=== PATIENT | male | born 1965 | race Caucasian/White ===

== ENCOUNTER 2020-06-20 09:48 | Inpatient (IN) | payer OTHER ==
[~2020-06-20] VITALS: Ht 182.9 cm; Wt 125.2 kg
[2020-06-20 10:43] LABS: BASOPHILS ABSOLUTE AUTO 0.12 K/mm3 (0.00-0.23); BASOPHILS PERCENT AUTO 0 % (0-2); EOSINOPHILS ABSOLUTE AUTO 0.12 K/mm3 (0.00-0.68); EOSINOPHILS PERCENT AUTO 0 % (0-6); Hematocrit 30.2 % (37.0-53.0); Hemoglobin 9.9 g/dL (13.5-17.5); IMMATURE GRAN ABSOLUTE AUTO 0.42 K/mm3 (0.00-0.10); IMMATURE GRAN PERCENT AUTO 2 % (0-1); LYMPHOCYTES ABSOLUTE AUTO 1.42 K/mm3 (0.84-5.20); LYMPHOCYTES PERCENT AUTO 5 % (21-46); MONOCYTES ABSOLUTE AUTO 1.72 K/mm3 (0.16-1.47); MONOCYTES PERCENT AUTO 6 % (4-13); Mean Corpuscular HGB 28.5 pg (26.0-34.0); Mean Corpuscular HGB Conc 32.8 g/dL (31.5-36.5); Mean Corpuscular Volume 87 fL (80-100); Mean Platelet Volume 10.2 fL (9.1-12.4); NEUTROPHILS ABSOLUTE AUTO 23.28 K/mm3 (1.96-9.15); NEUTROPHILS PERCENT AUTO 86 % (41-73); Platelet Count 336 K/mm3 (150-400); RDW Coefficient Variation 13.6 % (11.7-14.2); RDW Standard Deviation 43.3 fL (35.1-46.3); Red Blood Cell Count 3.47 M/mm3 (4.30-5.90); White Blood Cell Count 27.08 K/mm3 (4.00-11.30)
[2020-06-20 10:51] LABS: Albumin, Blood 1.5 g/dL (3.4-5.0); Albumin/Globulin Ratio 0.3 (0.8-1.8); Bilirubin, Total 4.7 mg/dL (0.1-1.0); Bun/Creatinine Ratio 12.3 (12.0-20.0); Calcium, Blood 8.3 mg/dL (8.5-10.1); Creatinine, Blood 3.73 mg/dL (0.60-1.20); Globulin, Blood 5.3 g/dL (2.2-4.0); Potassium, Blood 4.1 mmol/L (3.5-5.5); Total Protein, Blood 6.8 g/dL (6.4-8.2)
[2020-06-20 13:13] LABS: Source, Urine Clean Catch
[2020-06-20 13:15] LABS: Appearance, Urine Hazy (Clear); Bilirubin, Urine Neg (Neg); Blood, Urine 3+ (Neg); Color, Urine Yellow (P-Yellow); Glucose Qualitative, Urine Neg (Neg); Ketones, Urine Neg (Neg); Leukocyte Esterase, Urine Neg (Neg); Nitrite, Urine Neg (Neg); Protein, Urine 2+ (Neg); Urobilinogen, Urine NORM (Normal)
[2020-06-20 13:27] LABS: Amorphous Mod (0-Heavy)
[2020-06-20 13:29] LABS: Bacteria Few /hpf; Squamous Epithelial Cells Few /hpf (Few); White Blood Cells, Urine 0-2 /hpf (0-5)
[2020-06-20 13:30] LABS: Transitional Epithelial Cells Few /hpf (0-Rare)
[2020-06-20 17:37] LABS: Influenza A, PCR Negative (NEGATIVE); Influenza B, PCR Negative (NEGATIVE); Resp Syncytial Virus, PCR Negative (NEGATIVE); SARS-Cov-2 (COVID-19) PCR, MMC Negative (NEGATIVE)
--- NOTE | 2020-06-20 18:50 | NUR ---
SHIFT SUMMARY- PT ADMITTED THROUGH THE ED, R/O COVID TEST COMPLETED NEGATIVE RESULT. PER PT HE HAS NO HEALTH Hx OTHER THAN DIABETES AND THAT WAS A FAIRLY RECENT DEVELOPEMENT. PT TAKES NO MEDICATIONS AT HOME AND IS NORMALLY INDEPENDENT. 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 HE REQUESTS NO PORK. PT DENIED NAUSEA ON ARRIVAL THEN A SHORT WHILE LATER BEGAN BURPING AND WRETCHING, THE WAVE PASSED AND HE WAS AGAIN NOT NAUSEOUS. PT SPOUSE CATHRYN WOULD LIKE ISREAL TO CALL HER WITH ANY UPDATES, SHE IS A RN. PT CURRENTLY DENIES PAIN. NO S&S OF DISTRESS NOTED AT THIS TIME WILL CTM AND PASS ON TO NIGHT RN IN BEDSIDE REPORT. PT SPOUSE ASKED THE RN TO CALL HER WITH UPDATE WILL CALL ONCE REPORT IS COMPLETED WITH NIGHTSHIFT.
--- NOTE | 2020-06-20 19:36 | NUR ---
CALLED PT SPOUSE WITH AN UPDATE THIS EVENING.
--- NOTE | 2020-06-20 23:06 | NUR ---
TWENTY-FOUR HOUR URINE COLLECTION IN PROGRESS. PATIENT VOIDING AT THIS TIME.
--- NOTE | 2020-06-21 04:01 | NUR ---
SHIFT SUMMARY PATIENT NAUSEOUS X ONE AT SHIFT CHANGE AND IV ZOFRAN EFFECTIVE IN REDUCING N/V. AXO X 4 AND ONE ASSIST W/FWW TO BR. USES URINAL AT BEDSIDE. TWENTY-FOUR HOUR URINE COLLECTION STARTED. PIV REMAINS INTACT. PLASTERER ROUGH REPORTS ST 101. CELLULITIS WOUNDS OPEN TO AIR. PHOTO CONSENT SIGNED AND PICTURES TAKEN AND IN CHART. ARANESP SC GIVEN PER EMAR. PATIENT REPORTED NAUSEA A SECOND TIME AND ASKED FOR CRACKERS AND CHEESE FOR RELIEF. N/V RESOLVED. PATIENT ABLE TO GO BACK TO SLEEP. LOW GRADE TEMP. CALL LIGHT IN REACH. BED IN LOWEST POSITION. WILL CONTINUE TO MONITOR UNTIL DAY SHIFT NURSE ASSUMES CARE.
[2020-06-21 05:09] LABS: BASOPHILS ABSOLUTE AUTO 0.09 K/mm3 (0.00-0.23); BASOPHILS PERCENT AUTO 0 % (0-2); EOSINOPHILS PERCENT AUTO 1 % (0-6); Hematocrit 28.8 % (37.0-53.0); Hemoglobin 9.5 g/dL (13.5-17.5); IMMATURE GRAN ABSOLUTE AUTO 0.38 K/mm3 (0.00-0.10); IMMATURE GRAN PERCENT AUTO 2 % (0-1); LYMPHOCYTES ABSOLUTE AUTO 1.61 K/mm3 (0.84-5.20); LYMPHOCYTES PERCENT AUTO 7 % (21-46); MONOCYTES ABSOLUTE AUTO 1.79 K/mm3 (0.16-1.47); MONOCYTES PERCENT AUTO 8 % (4-13); Mean Corpuscular HGB 28.2 pg (26.0-34.0); Mean Corpuscular Volume 86 fL (80-100); Mean Platelet Volume 10.1 fL (9.1-12.4); NEUTROPHILS ABSOLUTE AUTO 18.64 K/mm3 (1.96-9.15); NEUTROPHILS PERCENT AUTO 82 % (41-73); Platelet Count 315 K/mm3 (150-400); RDW Coefficient Variation 13.6 % (11.7-14.2); RDW Standard Deviation 42.9 fL (35.1-46.3); Red Blood Cell Count 3.37 M/mm3 (4.30-5.90); White Blood Cell Count 22.71 K/mm3 (4.00-11.30)
[2020-06-21 05:35] LABS: Alanine Aminotransfer (ALT/SGP 54 U/L (12-78); Albumin, Blood 1.5 g/dL (3.4-5.0); Albumin/Globulin Ratio 0.3 (0.8-1.8); Alk Phos 448 U/L (50-136); Anion Gap 11 mmol/L (6-16); Aspartate Aminotrans (AST/SGOT 60 U/L (12-37); Bilirubin, Total 4.4 mg/dL (0.1-1.0); Blood Urea Nitrogen 59 mg/dL (8-24); Bun/Creatinine Ratio 13.4 (12.0-20.0); CO2, Blood 22 mmol/L (21-32); Chloride, Blood 97 mmol/L (98-108); Globulin, Blood 4.8 g/dL (2.2-4.0); Glomerular Filtration Rate 15 (60-); Glucose, Blood 148 mg/dL (70-99); Magnesium, Blood 2.2 mg/dL (1.6-2.4); Phosphorus, Blood 4.9 mg/dL (2.5-4.9); Potassium, Blood 3.9 mmol/L (3.5-5.5); Prostate Specific Antigen 0.553 ng/mL (0.000-4.000); Sodium, Blood 130 mmol/L (136-145); Total Protein, Blood 6.3 g/dL (6.4-8.2)
--- NOTE | 2020-06-21 08:01 | NUR ---
ON MORNING ASSESSMENT PT WAS NOTED TO HAVE A LITTLE COUGH. WHEN ASKED HE STATED HE HAS HAD THIS "NAGGING COUGH" SINCE . HE DENIES SORE THROAT NOTED SOME WHITE PATCHES NEAR THE BACK OF THE THROAT AND ON THE UVULA. REDNESS NOTED THROUGHOUT THE VISIBLE THROAT. WILL SPEAK TO ON MORNING ROUNDS.
[2020-06-21 08:09] LABS: HBSAG SCREEN Negative (Negative); HEP A AB, IGM Negative (Negative); HEP B CORE AB, IGM Negative (Negative); HEP B CORE AB, TOT Negative (Negative); HEP C VIRUS AB 0.1 (0.0-0.9); HEP C VIRUS AB <0.1 (0.0-0.9)
--- NOTE | 2020-06-21 10:49 | NUR ---
Clinical Visit: Pt is alert, oriented, pleasant. He reports moderate to severe pain in the leg that is infected with cellulitis. Pt believes that he has already filled out an advance directive in the ER, however, this sounds more like he has signed consent for treatment and admission forms. Discussed advanced care planning. He is open to filling one out if he hasn't already. He has discussed wishes with his ; he states she is aware of his feelings on life support. He is accepting of looking at the advance directive when he gets home. Reviewed purpose of directive; instructed on two witness signatures that can be obtained from friends as long as they are not named decision makers in the document. He thanks this nurse for the time to have this discussion. No other concerns. He will accept Tylenol or Advil for the pain he is having in his legs.
--- NOTE | 2020-06-21 18:23 | NUR ---
SHIFT SUMMARY- SPOKE TO DR ABOUT THE NOTED WHITE PATCHES IN THE PT THROAT, HE IS AWARE. NO ACUTE CHANGES T/O THE DAY. BP HAS BEEN ELEVATED, PAIN SEEMS WELL MANAGED WITH TYLENOL. PT IS A 1P SBA TO THE BATHROOM. PT USES THE URINAL INDEPENDENTLY, 24 HOUR URINE COLLECTION WILL BE COMPLETED AT 1999. PT HAS SOME TRACE EDEMA IN THE RLE THE LLE HAS 2+ PITTING EDEMA. REDNESS SEEMS TO BE REDUCED. GFR WENT DOWN TODAY. DR MORELOS IS CONSULTED. PT SPOUSE REQUESTS THAT HE CALLS HER WITH UPDATE TOMORROW ABOUT THE PT KIDNEY FUNCTION. WILL PASS ALL ON IN REPORT TO NIGHT RN IN BEDSIDE REPORT.
[2020-06-21 20:17] LABS: Source, Urine Catheter
[2020-06-21 20:21] LABS: Bilirubin, Urine Neg (Neg); Blood, Urine 3+ (Neg); Glucose Qualitative, Urine 1+ (Neg); Ketones, Urine 1+ (Neg); Leukocyte Esterase, Urine Neg (Neg); Nitrite, Urine Neg (Neg); Protein, Urine 2+ (Neg); Urobilinogen, Urine NORM (Normal)
[2020-06-21 20:26] LABS: Appearance, Urine Hazy (Clear); Color, Urine Yellow (P-Yellow)
[2020-06-21 20:28] LABS: Squamous Epithelial Cells Not Seen /hpf (Few); White Blood Cells, Urine 0-2 /hpf (0-5)
[2020-06-21 20:29] LABS: Bacteria Rare /hpf
[2020-06-21 20:53] LABS: Protein, Urine Quantitative 30.3 mg/dL (0.0-11.9)
--- NOTE | 2020-06-22 04:53 | NUR ---
SHIFT SUMMARY PATIENT HAD NO ACUTE CHANGES OBSERVED. AXOX 4 AND ONE ASSIST TO BATHROOM. USES URINAL AT BEDSIDE. ON IV BUMEX. TWENTY-FOUR HOUR URINE COLLECTION SENT TO LAB WITH ADDITIONAL URINE SEPARATE LABS. CELLULITIS LEFT CALF. DENIES PAIN, SOB, AND N/V. PIV REMAINS INTACT. AFEBRILE. CALL LIGHT IN REACH. BED IN LOWEST POSITION. WILL CONTINUE TO MONITOR UNTIL DAY SHIFT NURSE ASSUMES CARE.
[2020-06-22 05:58] LABS: BASOPHILS ABSOLUTE AUTO 0.16 K/mm3 (0.00-0.23); BASOPHILS PERCENT AUTO 1 % (0-2); EOSINOPHILS ABSOLUTE AUTO 0.22 K/mm3 (0.00-0.68); EOSINOPHILS PERCENT AUTO 1 % (0-6); Hematocrit 30.5 % (37.0-53.0); Hemoglobin 9.9 g/dL (13.5-17.5); IMMATURE GRAN ABSOLUTE AUTO 0.75 K/mm3 (0.00-0.10); IMMATURE GRAN PERCENT AUTO 4 % (0-1); LYMPHOCYTES ABSOLUTE AUTO 1.84 K/mm3 (0.84-5.20); LYMPHOCYTES PERCENT AUTO 9 % (21-46); MONOCYTES ABSOLUTE AUTO 1.62 K/mm3 (0.16-1.47); MONOCYTES PERCENT AUTO 8 % (4-13); Mean Corpuscular HGB 27.7 pg (26.0-34.0); Mean Corpuscular HGB Conc 32.5 g/dL (31.5-36.5); Mean Corpuscular Volume 85 fL (80-100); Mean Platelet Volume 9.8 fL (9.1-12.4); NEUTROPHILS ABSOLUTE AUTO 16.24 K/mm3 (1.96-9.15); NEUTROPHILS PERCENT AUTO 78 % (41-73); Platelet Count 379 K/mm3 (150-400); RDW Coefficient Variation 13.8 % (11.7-14.2); RDW Standard Deviation 43.2 fL (35.1-46.3); Red Blood Cell Count 3.57 M/mm3 (4.30-5.90); White Blood Cell Count 20.83 K/mm3 (4.00-11.30)
[2020-06-22 06:24] LABS: Albumin, Blood 1.6 g/dL (3.4-5.0); Albumin/Globulin Ratio 0.3 (0.8-1.8); Bilirubin, Direct 2.5 mg/dL (0.0-0.3); Bilirubin, Indirect 0.8 mg/dL (0.1-0.7); Bilirubin, Total 3.3 mg/dL (0.1-1.0); Bun/Creatinine Ratio 14.2 (12.0-20.0); Calcium, Blood 8.1 mg/dL (8.5-10.1); Creatinine, Blood 5.2 mg/dL (0.60-1.20); Globulin, Blood 5.3 g/dL (2.2-4.0); Magnesium, Blood 2.3 mg/dL (1.6-2.4); Phosphorus, Blood 5.7 mg/dL (2.5-4.9); Potassium, Blood 4.2 mmol/L (3.5-5.5); Total Protein, Blood 6.9 g/dL (6.4-8.2); Uric Acid, Blood 9.6 mg/dL (3.5-7.2)
--- NOTE | 2020-06-22 10:38 | NUR ---
SPOKE TO - PT STATED HE IS HAVING FULL BODY DISCOMFORT WORSENED BY TOUCH. PT DENIES N/T BUT HIS DESCRIPTION SOUNDS LIKE A LITTLE NUMBNESS. DR IS AWARE, MENTIONED POSSIBLE GABAPENTIN TO HELP WITH THIS DISCOMFORT, NO NEW ORDERS YET HAS NOT SEEN THE PT YET. PT HAS NO C/O SORE THROAT STATES AN "OCCASSIONAL TICKLE" RENDESS NOTED ON MORNING ASSESSMENT WELL WHITE PATCHES ON BOTH SIDES OF THE BACK OF THE THROAT. SPOKE TO ABOUT A OBTAINING A SWAB. NO NEW ORDERS AT THIS TIME.
--- NOTE | 2020-06-22 14:54 | NUR ---
PT HAS IV BUMEX ORDERED TID. BP CHECK PRIOR TO 1400 DOSE SHOWS BP 170/100 CHECKED TWICE. GAVE 2MG IV BUMEX WILL RECHECK BP IN ONE HOUR. WILL CALL DR IF PERSISTENT HTN IS PRESENT.
--- NOTE | 2020-06-22 15:35 | NUR ---
CALLED DR MORELOS- WHEN REVIEWING DR CLARKE NOTE FROM EARLIER TODAY THE PLAN SEEMED TO BE FOR AN ECHO TO BE DONE BUT NO ORDER IN THE PT CHART AT THIS TIME, CALLED TO CLARIFY AND SEE IF THIS ORDER SHOULD BE PLACED; LEFT A VOICEMAIL AWAITING A CALL BACK.
--- NOTE | 2020-06-22 15:40 | NUR ---
SPOKE TO DR MORELOS- NEW ORDER PLACED FOR ECHO TO R/O PERICARDIAL EFFUSION. OK TO DO TOMORROW PER DR MORELOS.
--- NOTE | 2020-06-22 15:49 | NUR ---
CALLED DR GARZA- PT REPEAT BP 1 HOUR AFTER THE IV BUMEX WAS 171/102. DR AWARE NO NEW ORDERS AT THIS TIME.
--- NOTE | 2020-06-22 17:06 | NUR ---
SHIFT SUMMARY- PT ALERT AND ORIENTED, 1P ASSIST TO THE BATHROM. SPOUSE BROUGHT IN HIS PERSONAL UNDERGARMENTS SO NO LONGER IN ATTENDS. PT STATED HE HAS FULL BODY PAIN BUT IT IS "DULL AND NAGGING" TYPE OF PAIN [place]ING ALL OF HIS BODY "EVEN HIS FACE." PT SPOUSE BROUGHT IN A BAGEL AND HE HAD A 1/4 OF IT A SNACK, WITH CREAM CHEESE, BETWEEN LUNCH AND DINNER. EVENING BG HIGHER THAN LUNCH TIME BG AND PT RECIEVED 9 UNITS OF COVERAGE WITH LUNCH. PT HAS HAD PERSISTENT HTN SINCE ADMIT METOPROLOL STARTED YESTERDAY DOSE INCREASED TODAY. PT STILL HAVING HTN, SEE PREVIOUS NOTES FOR DETAILS. DR FISH.
[2020-06-23 05:34] LABS: Hematocrit 28.9 % (37.0-53.0); Hemoglobin 9.6 g/dL (13.5-17.5)
[2020-06-23 06:02] LABS: Albumin, Blood 1.5 g/dL (3.4-5.0); Anion Gap 11 mmol/L (6-16); Blood Urea Nitrogen 85 mg/dL (8-24); Bun/Creatinine Ratio 14.4 (12.0-20.0); CO2, Blood 23 mmol/L (21-32); Calcium, Blood 7.8 mg/dL (8.5-10.1); Chloride, Blood 96 mmol/L (98-108); Creatinine, Blood 5.92 mg/dL (0.60-1.20); Glomerular Filtration Rate 11 (60-); Glucose, Blood 367 mg/dL (70-99); Potassium, Blood 4.1 mmol/L (3.5-5.5); Sodium, Blood 130 mmol/L (136-145)
--- NOTE | 2020-06-23 06:49 | NUR ---
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 DID NOT SLEEP WELL OVERNIGHT. DR. MORELOS INCREASED DOSE OF RESTORIL FOR TONIGHT. PT HAS BEEN HYPERTENSIVE. HOSPITALIST DR. WILDER NOTIFIED. HYDRALAZINE Q6 PRN IV ORDERED WELL TELE. PT BEEN SR IN THE 80'S. PLEASANT AND COOPERATIVE. CALLS APPROPRIATELY. CALL LIGHT WITHIN REACH.
[2020-06-23 08:21] LABS: BASOPHILS PERCENT AUTO 1 % (0-2); EOSINOPHILS ABSOLUTE AUTO 0.24 K/mm3 (0.00-0.68); EOSINOPHILS PERCENT AUTO 1 % (0-6); Hematocrit 29.1 % (37.0-53.0); Hemoglobin 9.6 g/dL (13.5-17.5); IMMATURE GRAN PERCENT AUTO 4 % (0-1); LYMPHOCYTES ABSOLUTE AUTO 1.75 K/mm3 (0.84-5.20); LYMPHOCYTES PERCENT AUTO 10 % (21-46); MONOCYTES PERCENT AUTO 9 % (4-13); Mean Corpuscular HGB 28.3 pg (26.0-34.0); Mean Corpuscular Volume 86 fL (80-100); Mean Platelet Volume 10.4 fL (9.1-12.4); NEUTROPHILS ABSOLUTE AUTO 13.47 K/mm3 (1.96-9.15); NEUTROPHILS PERCENT AUTO 75 % (41-73); Platelet Count 365 K/mm3 (150-400); RDW Coefficient Variation 14.2 % (11.7-14.2); RDW Standard Deviation 44.4 fL (35.1-46.3); Red Blood Cell Count 3.39 M/mm3 (4.30-5.90); White Blood Cell Count 18.06 K/mm3 (4.00-11.30)
--- NOTE | 2020-06-23 10:52 | NUR ---
Echocardiogram completed.
--- NOTE | 2020-06-23 17:07 | NUR ---
PATIENT IS A/OX4, UP WITH FWW AND 1 ASSIST. LLE RED AND WEEPING, ANCEF STARTED TO CELLULITIS. SR ON TLE, B/P ELEVATED THIS EVENING AND HYDRALAZINE GIVEN X1 TO TREAT. SR ON TELE, PATIENT DENIES ANY CP OR SOB. LUNGS CLEAR, ON RA. BLOOD SUGARS ELEVATED, PATIENT NOW ON MEDIUM SLIDING SCALE. 20G IV TO R AC WNL AND SL. 1L FLUID RESTRICTION, ADA DIET. FENTANYL GIVEN X1 FOR LLE PAIN AFTER WORKING WITH THERAPY. ECHO COMPLETED TODAY. CALM AND COOPERATIVE WITH CARE, CALLS APPROPRIATELY FOR ASSISTANCE.
--- NOTE | 2020-06-23 17:24 | NUR ---
Spiritual care note: Wiliam was tearful as he spoke to me about his childhood, the loss of his first , and his fear of . 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 He has three grown sons and has remarried. I facilitated conversation about his grief and explored his beleifs. We prayed together for healing and strength. He will benefit from a clear explaination about his illnesses and how to better care for himself from a medical standpoint. I will remain available.
[2020-06-24 05:19] LABS: BASOPHILS ABSOLUTE AUTO 0.14 K/mm3 (0.00-0.23); BASOPHILS PERCENT AUTO 1 % (0-2); EOSINOPHILS ABSOLUTE AUTO 0.25 K/mm3 (0.00-0.68); EOSINOPHILS PERCENT AUTO 1 % (0-6); Hematocrit 28.5 % (37.0-53.0); Hemoglobin 9.6 g/dL (13.5-17.5); IMMATURE GRAN ABSOLUTE AUTO 0.83 K/mm3 (0.00-0.10); IMMATURE GRAN PERCENT AUTO 4 % (0-1); LYMPHOCYTES ABSOLUTE AUTO 2.05 K/mm3 (0.84-5.20); LYMPHOCYTES PERCENT AUTO 11 % (21-46); MONOCYTES ABSOLUTE AUTO 1.93 K/mm3 (0.16-1.47); MONOCYTES PERCENT AUTO 10 % (4-13); Mean Corpuscular HGB 28.3 pg (26.0-34.0); Mean Corpuscular HGB Conc 33.7 g/dL (31.5-36.5); Mean Corpuscular Volume 84 fL (80-100); Mean Platelet Volume 9.8 fL (9.1-12.4); NEUTROPHILS ABSOLUTE AUTO 14.33 K/mm3 (1.96-9.15); NEUTROPHILS PERCENT AUTO 73 % (41-73); Platelet Count 381 K/mm3 (150-400); RDW Standard Deviation 43.1 fL (35.1-46.3); Red Blood Cell Count 3.39 M/mm3 (4.30-5.90); White Blood Cell Count 19.53 K/mm3 (4.00-11.30)
[2020-06-24 05:43] LABS: Magnesium, Blood 2.3 mg/dL (1.6-2.4)
[2020-06-24 05:44] LABS: Albumin, Blood 1.7 g/dL (3.4-5.0); Anion Gap 11 mmol/L (6-16); Blood Urea Nitrogen 85 mg/dL (8-24); Bun/Creatinine Ratio 13.7 (12.0-20.0); CO2, Blood 23 mmol/L (21-32); Chloride, Blood 97 mmol/L (98-108); Creatinine, Blood 6.21 mg/dL (0.60-1.20); Glomerular Filtration Rate 10 (60-); Glucose, Blood 283 mg/dL (70-99); Phosphorus, Blood 6.5 mg/dL (2.5-4.9); Potassium, Blood 3.9 mmol/L (3.5-5.5); Sodium, Blood 131 mmol/L (136-145)
--- NOTE | 2020-06-24 05:50 | NUR ---
SHIFT SUMMARY AOX4. TELE NSR @92. BP SLIGHTLY ELEVATED THIS AM @167/95, GAVE HYDRALAZINE PER ORDERS FOR >160 SYSTOLIC. REST OF VITALS STABLE. PT DENIES N/V, DYSPNEA. REPORTS 3.5-710 LLE, PAIN WORSE c AMBULATION. PT STATES CELLULITIS IN LLE HAS GOTTEN BETTER, LLE IS OPEN TO AIR, SMALL AMOUNT RED DRAINAGE NOTED, +2 EDEMA, REDNESS HAS RECEDED FROM OUTLINE ON LEG. RECIEVING IV ANCEF & BUMEX. HS CBG @284. HAD FIRM HARD BM THIS MORNING. CALL LIGHT IN REACH, WILL MONITOR UNTIL DAY NURSE ASSUMES CARE.
[2020-06-24 13:09] LABS: A/G RATIO 0.6 (0.7-1.7); ALBUMIN 1.9 g/dL (2.9-4.4); ALPHA-1-GLOBULIN 0.4 g/dL (0.0-0.4); BETA GLOBULIN 1.1 g/dL (0.7-1.3); GAMMA GLOBULIN 1.3 g/dL (0.4-1.8); GLOBULIN, TOTAL 3.8 g/dL (2.2-3.9); IMMUNOGLOBULIN A, QN, SERUM 312 mg/dL (90-386); IMMUNOGLOBULIN G, QN, SERUM 1408 mg/dL (603-1613); IMMUNOGLOBULIN M, QN, SERUM 66 mg/dL (20-172); M-SPIKE Not Observed g/dL (Not Observed); PROTEIN, TOTAL, SERUM 5.7 g/dL (6.0-8.5)
--- NOTE | 2020-06-24 17:42 | NUR ---
PATIENT A/OX4, UP WITH FWW 1 ASSIST. PAINFUL WITH AMBULATION. MEDIATED WITH FENTANYL X1. PT/OT ORDERED. 20G IV TO R AC WNL AND SL. REDNESS IMPROVING TO LLE, ANCEF ORDERED TO TREAT CELLULITIS. PATIENT TO HAVE PERM CATH PLACED IN AM AT 0700, DR. LONG UNABLE TO TODAY. TOLERATING ADA DIET, COMPLIANT WITH 1.5L FLUID RESTRICTION. ABLE TO MAKE NEEDS KNOWN.
[2020-06-25 05:33] LABS: BASOPHILS ABSOLUTE AUTO 0.12 K/mm3 (0.00-0.23); BASOPHILS PERCENT AUTO 1 % (0-2); EOSINOPHILS ABSOLUTE AUTO 0.28 K/mm3 (0.00-0.68); EOSINOPHILS PERCENT AUTO 1 % (0-6); Hematocrit 27.3 % (37.0-53.0); Hemoglobin 9.1 g/dL (13.5-17.5); IMMATURE GRAN ABSOLUTE AUTO 0.63 K/mm3 (0.00-0.10); IMMATURE GRAN PERCENT AUTO 3 % (0-1); LYMPHOCYTES ABSOLUTE AUTO 1.92 K/mm3 (0.84-5.20); LYMPHOCYTES PERCENT AUTO 10 % (21-46); MONOCYTES ABSOLUTE AUTO 1.74 K/mm3 (0.16-1.47); MONOCYTES PERCENT AUTO 9 % (4-13); Mean Corpuscular HGB 27.9 pg (26.0-34.0); Mean Corpuscular HGB Conc 33.3 g/dL (31.5-36.5); Mean Corpuscular Volume 84 fL (80-100); Mean Platelet Volume 9.5 fL (9.1-12.4); NEUTROPHILS ABSOLUTE AUTO 14.88 K/mm3 (1.96-9.15); NEUTROPHILS PERCENT AUTO 76 % (41-73); Platelet Count 375 K/mm3 (150-400); RDW Coefficient Variation 14.1 % (11.7-14.2); RDW Standard Deviation 43.1 fL (35.1-46.3); Red Blood Cell Count 3.26 M/mm3 (4.30-5.90); White Blood Cell Count 19.57 K/mm3 (4.00-11.30)
[2020-06-25 05:56] LABS: Albumin, Blood 1.6 g/dL (3.4-5.0); Anion Gap 10 mmol/L (6-16); Blood Urea Nitrogen 91 mg/dL (8-24); CO2, Blood 24 mmol/L (21-32); Calcium, Blood 8.1 mg/dL (8.5-10.1); Chloride, Blood 98 mmol/L (98-108); Creatinine, Blood 6.51 mg/dL (0.60-1.20); Glomerular Filtration Rate 10 (60-); Glucose, Blood 266 mg/dL (70-99); Magnesium, Blood 2.3 mg/dL (1.6-2.4); Phosphorus, Blood 6.9 mg/dL (2.5-4.9); Potassium, Blood 3.9 mmol/L (3.5-5.5); Sodium, Blood 132 mmol/L (136-145)
[2020-06-25 07:10] LABS: ANTIGLOMERULAR BM AB 5 units (0-20)
--- NOTE | 2020-06-25 07:51 | NUR ---
SHIFT SUMMARY NO ACUTE CHANGES THIS SHIFT. AOX4. VSS. TELE NSR HR 80'S. DENIES N/V DYSPNEA. HAS 2-3/10 PAIN IN LLE R/T CELLULITIS. REDNESS HAS DECREASED IN LLE, STILL HAS +2 EDEMA. DENIES NEED FOR PAIN MEDICATION. HAS BEEN NPO SINCE MIDNIGHT FOR PERMCATH PLACEMENT THIS AM. PT WAS TAKEN TO SURGERY AROUND 0740 WHILE GIVING REPORT TO DAY SHIFT NURSE.
[2020-06-25 13:10] LABS: ANA DIRECT Positive (Negative); ANTI-CENTROMERE B ANTIBODIES <0.2 AI (0.0-0.9); ANTI-DNA (DS) AB QN <1 IU/mL (0-9); ANTI-JO-1 <0.2 AI (0.0-0.9); ANTICHROMATIN ANTIBODIES <0.2 AI (0.0-0.9); ANTIMYELOPEROXIDASE (MPO) ABS <9.0 U/mL (0.0-9.0); ANTIPROTEINASE 3 (PR-3) ABS <3.5 U/mL (0.0-3.5); ANTIRIBOSOMAL P ANTIBODIES <0.2 AI (0.0-0.9); ANTISCLERODERMA-70 ANTIBODIES <0.2 AI (0.0-0.9); ATYPICAL PANCA <1:20 titer (Neg:<1:20); CYTOPLASMIC (C-ANCA) <1:20 titer (Neg:<1:20); PERINUCLEAR (P-ANCA) <1:20 titer (Neg:<1:20); RNP ANTIBODIES 1.7 AI (0.0-0.9); SJOGREN'S ANTI-SS-A <0.2 AI (0.0-0.9); SJOGREN'S ANTI-SS-B <0.2 AI (0.0-0.9); SMITH ANTIBODIES <0.2 AI (0.0-0.9); SMITH/RNP ANTIBODIES <0.2 AI (0.0-0.9)
[2020-06-25 13:10] LABS: M-SPIKE, % Not Observed % (Not Observed); PROTEIN,TOTAL,URINE 17.4 mg/dL (Not Estab.)
--- NOTE | 2020-06-25 16:32 | NUR ---
LATE ENTRY FOR 06/25 0730- PT SENT TO CARDIAC LAB FOR PERMACATH PLACEMENT. PT HAS BEEN NPO SINCE ME. RETURNNED POST PROCEDURE 904, SCANT SS DRAINAGE PROX INC SITE, APPLIED BANDANGELIQUE RUST. CATH SITE PATENT NO DRAINAGE, GAUZE INTACT. CALL LIGHT IN REACH, WILL CHECK POST PROCEDURE VS.
--- NOTE | 2020-06-25 17:23 | NUR ---
Spiritual care note: Prayer provided for Wiliam who was on his way to his 1st dialysis. He admitted he was fearful and responded well to encouragement and eap counselor. I will remain available.
--- NOTE | 2020-06-25 20:02 | NUR ---
SUMMARY- PT A/O X4. HAD PERMACATH PLACED RUC. COVERED WITH CLEAR GEL DRESSING, NO VISIBLE DRAINAGE. HAD DIALYSIS FOR THE FIRST TIME TODAY AT 1200, 500ML OFF. PT FOLLOWING 1L FR. FEELING GEN WEAKNESS. GOT UP TODAY ONLY AFTER NORCO, TO PREMEDICATE LE CELLULITIS PAIN.. HAD A BM. LLE CELLULITIS HAS AN ULCERATION, DRIED AND CRUSTY, SCANT SEROUS DRAINAGE. LEFT OPEN TO AIR AND ON AIR FLOW SHEET. MARKED WITH SHARPEE AND REDNESS HAS RECEEDED. TOLERATING SOLID FOOD. PT IS FEARFUL AND EMOTIONAL RELATED TO HIS CIRCUMSTANCES, OFFERED SUPPORT AND ENCOURAGEMENT . PT CONT TO VOID MED YELLOW URINE AND USES A URINAL. VSS, CRACKLES BIBASILAR, FINE.
[2020-06-26 05:37] LABS: BASOPHILS ABSOLUTE AUTO 0.08 K/mm3 (0.00-0.23); BASOPHILS PERCENT AUTO 0 % (0-2); EOSINOPHILS ABSOLUTE AUTO 0.17 K/mm3 (0.00-0.68); EOSINOPHILS PERCENT AUTO 1 % (0-6); Hematocrit 26.6 % (37.0-53.0); Hemoglobin 8.7 g/dL (13.5-17.5); IMMATURE GRAN ABSOLUTE AUTO 0.26 K/mm3 (0.00-0.10); IMMATURE GRAN PERCENT AUTO 1 % (0-1); LYMPHOCYTES ABSOLUTE AUTO 1.75 K/mm3 (0.84-5.20); LYMPHOCYTES PERCENT AUTO 9 % (21-46); MONOCYTES ABSOLUTE AUTO 1.63 K/mm3 (0.16-1.47); MONOCYTES PERCENT AUTO 9 % (4-13); Mean Corpuscular HGB 27.6 pg (26.0-34.0); Mean Corpuscular HGB Conc 32.7 g/dL (31.5-36.5); Mean Corpuscular Volume 84 fL (80-100); Mean Platelet Volume 9.7 fL (9.1-12.4); NEUTROPHILS ABSOLUTE AUTO 15.34 K/mm3 (1.96-9.15); NEUTROPHILS PERCENT AUTO 80 % (41-73); Platelet Count 398 K/mm3 (150-400); RDW Coefficient Variation 14.7 % (11.7-14.2); Red Blood Cell Count 3.15 M/mm3 (4.30-5.90); White Blood Cell Count 19.23 K/mm3 (4.00-11.30)
--- NOTE | 2020-06-26 05:55 | NUR ---
PT A/O X4, SLEPT WELL TONIGHT. DENIES PAIN, SOB. LLE REDNESS AND SWELLING. REDNESS WITHIN PARAMETERS MARKED. LLE EVEVATED ON PILLOW WITH MINIMAL SEROUS DRAINAGE. [address] IN PL[address]. PT PLEASANT AND COOPERATIVE. CALL LIGHT WITHIN REACH. NEUROS INTACT. CLEAR SPEECH.
[2020-06-26 06:05] LABS: Albumin, Blood 1.6 g/dL (3.4-5.0); Anion Gap 9 mmol/L (6-16); Blood Urea Nitrogen 69 mg/dL (8-24); CO2, Blood 28 mmol/L (21-32); Calcium, Blood 8.2 mg/dL (8.5-10.1); Chloride, Blood 97 mmol/L (98-108); Creatinine, Blood 5.31 mg/dL (0.60-1.20); Glomerular Filtration Rate 12 (60-); Glucose, Blood 278 mg/dL (70-99); Magnesium, Blood 2.1 mg/dL (1.6-2.4); Phosphorus, Blood 5.4 mg/dL (2.5-4.9); Sodium, Blood 134 mmol/L (136-145)
--- NOTE | 2020-06-26 19:36 | NUR ---
PT RESTING IN BED AFTER DINNER AND MAKES NO COMPLIANTS AT THIS TIME. PT LINE IS WNL AND SALINE LOCKED. PT ALERT AND ORIENTED X4 AND NEEDS MIN. ASSIST WHEN UP. STAFF WILL CONT. TO MONITOR.
--- NOTE | 2020-06-27 03:13 | NUR ---
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 slept well tonight. vss. lle redness apears decreased. ble swelling still present. currently on 1L fluid restriction. lungs sound diminished. pt ambulated to bathroom once tonight. medicated for pain emar after ambulation. call light within reach. calls appropriately.
[2020-06-27 06:03] LABS: Albumin, Blood 1.6 g/dL (3.4-5.0); Anion Gap 7 mmol/L (6-16); Blood Urea Nitrogen 57 mg/dL (8-24); Bun/Creatinine Ratio 11.9 (12.0-20.0); CO2, Blood 32 mmol/L (21-32); Calcium, Blood 8.2 mg/dL (8.5-10.1); Chloride, Blood 94 mmol/L (98-108); Creatinine, Blood 4.78 mg/dL (0.60-1.20); Glomerular Filtration Rate 14 (60-); Glucose, Blood 248 mg/dL (70-99); Potassium, Blood 3.6 mmol/L (3.5-5.5); Sodium, Blood 133 mmol/L (136-145)
[2020-06-27 06:04] LABS: BASOPHILS ABSOLUTE AUTO 0.09 K/mm3 (0.00-0.23); BASOPHILS PERCENT AUTO 1 % (0-2); EOSINOPHILS ABSOLUTE AUTO 0.19 K/mm3 (0.00-0.68); EOSINOPHILS PERCENT AUTO 1 % (0-6); Hematocrit 25.7 % (37.0-53.0); Hemoglobin 8.5 g/dL (13.5-17.5); IMMATURE GRAN ABSOLUTE AUTO 0.22 K/mm3 (0.00-0.10); IMMATURE GRAN PERCENT AUTO 1 % (0-1); LYMPHOCYTES ABSOLUTE AUTO 2.18 K/mm3 (0.84-5.20); LYMPHOCYTES PERCENT AUTO 14 % (21-46); MONOCYTES ABSOLUTE AUTO 1.43 K/mm3 (0.16-1.47); MONOCYTES PERCENT AUTO 9 % (4-13); Mean Corpuscular HGB 28.3 pg (26.0-34.0); Mean Corpuscular HGB Conc 33.1 g/dL (31.5-36.5); Mean Corpuscular Volume 86 fL (80-100); Mean Platelet Volume 10.1 fL (9.1-12.4); NEUTROPHILS ABSOLUTE AUTO 11.98 K/mm3 (1.96-9.15); NEUTROPHILS PERCENT AUTO 74 % (41-73); Platelet Count 389 K/mm3 (150-400); RDW Coefficient Variation 14.7 % (11.7-14.2); RDW Standard Deviation 45.3 fL (35.1-46.3); White Blood Cell Count 16.09 K/mm3 (4.00-11.30)
[2020-06-28 05:13] LABS: BASOPHILS ABSOLUTE AUTO 0.08 K/mm3 (0.00-0.23); BASOPHILS PERCENT AUTO 1 % (0-2); EOSINOPHILS ABSOLUTE AUTO 0.12 K/mm3 (0.00-0.68); EOSINOPHILS PERCENT AUTO 1 % (0-6); Hematocrit 25.4 % (37.0-53.0); Hemoglobin 8.1 g/dL (13.5-17.5); IMMATURE GRAN ABSOLUTE AUTO 0.15 K/mm3 (0.00-0.10); IMMATURE GRAN PERCENT AUTO 1 % (0-1); LYMPHOCYTES PERCENT AUTO 14 % (21-46); MONOCYTES ABSOLUTE AUTO 1.36 K/mm3 (0.16-1.47); MONOCYTES PERCENT AUTO 9 % (4-13); Mean Corpuscular HGB 27.6 pg (26.0-34.0); Mean Corpuscular HGB Conc 31.9 g/dL (31.5-36.5); Mean Corpuscular Volume 87 fL (80-100); Mean Platelet Volume 9.9 fL (9.1-12.4); NEUTROPHILS ABSOLUTE AUTO 11.88 K/mm3 (1.96-9.15); NEUTROPHILS PERCENT AUTO 75 % (41-73); Platelet Count 370 K/mm3 (150-400); RDW Coefficient Variation 14.9 % (11.7-14.2); RDW Standard Deviation 47.4 fL (35.1-46.3); Red Blood Cell Count 2.93 M/mm3 (4.30-5.90); White Blood Cell Count 15.79 K/mm3 (4.00-11.30)
[2020-06-28 05:24] LABS: Albumin, Blood 1.6 g/dL (3.4-5.0); Anion Gap 6 mmol/L (6-16); Blood Urea Nitrogen 49 mg/dL (8-24); Bun/Creatinine Ratio 11.5 (12.0-20.0); CO2, Blood 32 mmol/L (21-32); Calcium, Blood 8.2 mg/dL (8.5-10.1); Chloride, Blood 95 mmol/L (98-108); Creatinine, Blood 4.27 mg/dL (0.60-1.20); Glomerular Filtration Rate 16 (60-); Glucose, Blood 261 mg/dL (70-99); Magnesium, Blood 2.1 mg/dL (1.6-2.4); Phosphorus, Blood 4.4 mg/dL (2.5-4.9); Potassium, Blood 4.1 mmol/L (3.5-5.5); Sodium, Blood 133 mmol/L (136-145)
--- NOTE | 2020-06-28 05:49 | NUR ---
HAMMERSMITH HELPER SUMMARY Patient slept off and on overnight. No complaints of pain while at rest, but Wiliam developed 10/10 pain in left leg after walking to bathroom. Dryweave pad changed once for large spot saturated and sticking underneath left leg. Right chest perm cath site clean dry and intact. Patient states he is tolerating dialysis without too much difficulty. Patient is looking forward to his coming today, and is hoping she can come in early today during dialysis
--- NOTE | 2020-06-28 09:11 | NUR ---
PT TO DIALYSIS VIA BED.
--- NOTE | 2020-06-28 16:34 | NUR ---
SHIFT SUMMARY- PT A/OX4, SBA OUT OF BED. PT MEDICATED X1 FOR LEFT CALF PAIN, PAIN INCREASED WITH MOVEMENT. CELLULITIS TO LEFT CALF, OPEN TO AIR, NEW PHOTOS TAKEN TODAY. PT REPORTS CELLULITIS HAS MUCH IMPROVED. LS CLEAR, ON RA. OCCASIONAL DRY COUGH. 1+ LLE AND TRACE RLE EDEMA. PERMACATH TO RCW, DIALYSIS TODAY. NO OTHER ACUTE CHANGES THIS SHIFT.
[2020-06-29 04:36] LABS: BASOPHILS PERCENT AUTO 1 % (0-2); EOSINOPHILS ABSOLUTE AUTO 0.32 K/mm3 (0.00-0.68); EOSINOPHILS PERCENT AUTO 2 % (0-6); Hematocrit 23.9 % (37.0-53.0); Hemoglobin 7.7 g/dL (13.5-17.5); IMMATURE GRAN ABSOLUTE AUTO 0.09 K/mm3 (0.00-0.10); IMMATURE GRAN PERCENT AUTO 1 % (0-1); LYMPHOCYTES ABSOLUTE AUTO 1.94 K/mm3 (0.84-5.20); LYMPHOCYTES PERCENT AUTO 14 % (21-46); MONOCYTES ABSOLUTE AUTO 1.38 K/mm3 (0.16-1.47); MONOCYTES PERCENT AUTO 10 % (4-13); Mean Corpuscular HGB 28.1 pg (26.0-34.0); Mean Corpuscular HGB Conc 32.2 g/dL (31.5-36.5); Mean Corpuscular Volume 87 fL (80-100); Mean Platelet Volume 9.8 fL (9.1-12.4); NEUTROPHILS ABSOLUTE AUTO 10.57 K/mm3 (1.96-9.15); NEUTROPHILS PERCENT AUTO 73 % (41-73); Platelet Count 353 K/mm3 (150-400); RDW Coefficient Variation 15.4 % (11.7-14.2); RDW Standard Deviation 48.9 fL (35.1-46.3); Red Blood Cell Count 2.74 M/mm3 (4.30-5.90)
[2020-06-29 04:50] LABS: Albumin, Blood 1.7 g/dL (3.4-5.0); Anion Gap 6 mmol/L (6-16); Blood Urea Nitrogen 43 mg/dL (8-24); Bun/Creatinine Ratio 11.3 (12.0-20.0); CO2, Blood 31 mmol/L (21-32); Calcium, Blood 8.3 mg/dL (8.5-10.1); Chloride, Blood 94 mmol/L (98-108); Glomerular Filtration Rate 18 (60-); Glucose, Blood 220 mg/dL (70-99); Magnesium, Blood 2.1 mg/dL (1.6-2.4); Phosphorus, Blood 4.6 mg/dL (2.5-4.9); Potassium, Blood 3.9 mmol/L (3.5-5.5); Sodium, Blood 131 mmol/L (136-145)
--- NOTE | 2020-06-29 09:49 | NUR ---
SPOKE WITH JES ([phone]) AT [facility] IN [facility], UPDATE GIVEN TO JES, PER JES PT HAS A CHAIR TIME FOR MONDAY 07/02 AT 7:00. PER JES THEY WILL HOLD CHAIR TIME.
--- NOTE | 2020-06-29 17:09 | NUR ---
SHIFT SUMMARY- PT A/OX4, PT REPORTS 2/10 PAIN TO LLE WITH REST, DOES REPORT SOME INCREASE IN PAIN WITH GETTING UP BUT PT REPORTS MUCH IMPROVEMENT. LS CLEAR, ON RA. PERMCATH TO RIGHT CHEST WALL, NO DIALYSIS TODAY. CELLULITIS TO LLE, IV ANTIBIOTICS STOPPED TODAY. PT HAS CHAIR TIME WITH [facility] TUESDAY AT 7:00, PT HOPEFUL TO BE DISCHARGED SOON. PT SPOUSE AT BEDSIDE TODAY. NO OTHER ACUTE CHANGES THIS SHIFT.
[2020-06-30 04:47] LABS: BASOPHILS PERCENT AUTO 1 % (0-2); EOSINOPHILS ABSOLUTE AUTO 0.29 K/mm3 (0.00-0.68); EOSINOPHILS PERCENT AUTO 2 % (0-6); Hematocrit 25.6 % (37.0-53.0); Hemoglobin 8.1 g/dL (13.5-17.5); IMMATURE GRAN ABSOLUTE AUTO 0.09 K/mm3 (0.00-0.10); IMMATURE GRAN PERCENT AUTO 1 % (0-1); LYMPHOCYTES PERCENT AUTO 13 % (21-46); MONOCYTES PERCENT AUTO 9 % (4-13); Mean Corpuscular HGB 27.4 pg (26.0-34.0); Mean Corpuscular HGB Conc 31.6 g/dL (31.5-36.5); Mean Corpuscular Volume 87 fL (80-100); Mean Platelet Volume 9.7 fL (9.1-12.4); NEUTROPHILS PERCENT AUTO 74 % (41-73); Platelet Count 391 K/mm3 (150-400); RDW Coefficient Variation 15.7 % (11.7-14.2); RDW Standard Deviation 49.2 fL (35.1-46.3); Red Blood Cell Count 2.96 M/mm3 (4.30-5.90); White Blood Cell Count 12.68 K/mm3 (4.00-11.30)
[2020-06-30 05:17] LABS: Albumin, Blood 1.7 g/dL (3.4-5.0); Anion Gap 8 mmol/L (6-16); Blood Urea Nitrogen 54 mg/dL (8-24); Bun/Creatinine Ratio 12.3 (12.0-20.0); CO2, Blood 30 mmol/L (21-32); Calcium, Blood 8.5 mg/dL (8.5-10.1); Chloride, Blood 91 mmol/L (98-108); Glomerular Filtration Rate 15 (60-); Glucose, Blood 208 mg/dL (70-99); Magnesium, Blood 2.1 mg/dL (1.6-2.4); Phosphorus, Blood 5.1 mg/dL (2.5-4.9); Potassium, Blood 3.7 mmol/L (3.5-5.5); Sodium, Blood 129 mmol/L (136-145)
--- NOTE | 2020-06-30 05:54 | NUR ---
PATIENT WAS ABLE TO AMBULATE THIS EVENING WELL TO BATHROOM AND BACK. URINE IS LIGHTENING UP EACH TIME MARLEE USES URINAL. 2 STOOLS YESTERDAY. NO PAIN LEVEL GREATER THAN A 3 (TOLERABLE) OVERNIGHT. lOOKING FORWARD TO GOING HOME POSSIBLY TODAY. DRY COUGHING MORE FREQUENTLY TONIGHT. LUNG SOUNDS STILL CLEAR
[2020-06-30 08:48] LABS: Eosinophils-Raw #,Urine 0
--- NOTE | 2020-06-30 09:21 | NUR ---
PT TO DIALYSIS VIA BED.
[2020-06-30] MEDS ORDERED: HUMALOG KW200 UNIT/2 SC (12:29)
[2020-06-30] MEDS ORDERED: BASAGLAR K100 UNIT/6 SC (12:29)
[2020-06-30] MEDS ORDERED: BUME2 PO (12:29)
[2020-06-30] MEDS ORDERED: Lopressor 25 mg25 MG PO (12:30)
--- NOTE | 2020-06-30 16:01 | NUR ---
DISCHARGE INSTRUCTIONS REVIEWED WITH PT AND SPOUSE IN DEPTH. IV DC'D INTACT. RX FAXED TO [facility] IN [facility]. DR ORTIZ GAVE HARD SCRIPT FOR PAIN MEDICATION AND TEST STIPS. DISTILLERY WORKER SPOKE WITH PT REGARDING GLUCOSE MONITORING AND DIABETES DIET, GLUCOSE MONITOR GIVEN TO PT. DRESSING PLACED TO LLE. SPOKE WITH [facility] AND CHAIR TIME FOR TUE AM AT 7:10. ALSO SPOKE WITH DR MORELOS OFFICE WHO REPORTS TO HAVE PT COME IN ON THE AT ANY TIME TO FOLLOW UP WITH DR MORELOS. [facility] LOOKING [facility]. PT DC'D HOME WITH SPOUSE AT 1600, ESCORTED OUT VIA W/C.
--- NOTE | 2020-06-30 16:58 | NUR ---
FAXED [facility] IN [facility] TWICE AND THEY HAVE NOT RECEIVED ANYTHING, RX CALLED INTO [facility] AT THIS TIME.
== END 2020-06-30 16:00 | disposition home or self-care (01) | DRG 871 ==
LOC: ER 09:48 → MEDS 14:01 → ENPENDDIS 06-30 11:36 → MEDS 06-30 16:00
PROVIDERS: Emergency Medicine; Family Medicine; Internal Medicine Nephrology; Nurse Practitioner Acute Care; ADMIT Internal Medicine
PROC: 02HV33Z Insertion of Infusion Device into Superior Vena Cava, Percutaneous Approach (ICD-10-PCS; principal; 2020-06-24)
PROC: 0JH63XZ Insertion of Tunneled Vascular Access Device into Chest Subcutaneous Tissue and Fascia, Percutaneous Approach (ICD-10-PCS; 2020-06-24)
PROC: B518YZA Fluoroscopy of Superior Vena Cava using Other Contrast, Guidance (ICD-10-PCS; 2020-06-24)
PROC: B548ZZA Ultrasonography of Superior Vena Cava, Guidance (ICD-10-PCS; 2020-06-24)
PROC: 5A1D70Z Performance of Urinary Filtration, Intermittent, Less than 6 Hours Per Day (ICD-10-PCS; 2020-06-24)
DX: A41.9 Sepsis, unspecified organism (principal); N17.0 Acute kidney failure with tubular necrosis; N18.6 End stage renal disease; E87.1 Hypo-osmolality and hyponatremia; L03.116 Cellulitis of left lower limb; I12.0 Hypertensive chronic kidney disease with stage 5 chronic kidney disease or end stage renal disease; E11.65 Type 2 diabetes mellitus with hyperglycemia; Z79.4 Long term (current) use of insulin; D63.1 Anemia in chronic kidney disease; G47.00 Insomnia, unspecified; E11.22 Type 2 diabetes mellitus with diabetic chronic kidney disease; E11.319 Type 2 diabetes mellitus with unspecified diabetic retinopathy without macular edema; E66.01 Morbid (severe) obesity due to excess calories; E87.70 Fluid overload, unspecified; E88.09 Other disorders of plasma-protein metabolism, not elsewhere classified; K21.9 Gastro-esophageal reflux disease without esophagitis; Z91.19 Patient's noncompliance with other medical treatment and regimen; Z68.37 Body mass index [BMI] 37.0-37.9, adult; Z99.2 Dependence on renal dialysis; R65.20 Severe sepsis without septic shock
CPT/HCPCS: 0241U; 36415; 36558; 73700; 76770; 76937; 77001; 80053; 80069; 80074; 81001; 81050; 82248; 82550; 82565; 82784; 82947; 82977; 83036; 83516; 83520; 83605; 83735; 83880; 84100; 84156; 84165; 84166; 84300; 84443; 84550; 85014; 85018; 85025; 85651; 86038; 86140; 86256; 86317; 86334; 86335; 86704; 86708; 86803; 87040; 87205; 87340; 93005; 93010; 93306; 96361; 96365; 96375; 97110; 97162; 97165; 97530; 97535; 99152; 99285-25; A9270; A9270-GY; C1750; C1769; C1894; G0103; J0360; J0690; J0696; J0881; J1644; J2250; J2405; J3010; J7030; J7040; J7050